=== PATIENT | male | born 1955 | race Caucasian/White ===

== ENCOUNTER 2024-11-09 10:06 | Outpatient (CLI) | payer MEDICARE, BC ==
[2024-11-09] MEDS ORDERED: Magnevist 469MG/ML 20 ML VIAL ONE (11:01)
== END 2024-11-09 10:07 | disposition home or self-care (01) ==
LOC: CSHMRI 10:06
PROVIDERS: ATTEND Urology
DX: R97.20 Elevated prostate specific antigen [PSA] (principal)
CPT/HCPCS: 72197; 82565